=== PATIENT | male | born 2000 | race Caucasian/White ===

== ENCOUNTER 2024-04-23 18:18 | Emergency (ER) | payer OTHER ==
[2024-04-23] MEDS: Ketorolac 30 MG/ML SDV IM ONE (19:05)
== END 2024-04-23 19:31 | disposition home or self-care (01) ==
LOC: JP.ED 18:18
DX: M54.50 Low back pain, unspecified (principal); F17.210 Nicotine dependence, cigarettes, uncomplicated; Z88.0 Allergy status to penicillin
CPT/HCPCS: 96372; 99283; J1885